=== PATIENT | male | born 1970 | race Caucasian/White ===

== ENCOUNTER 2022-02-22 11:12 | Outpatient (CLI) | payer OTHER, SELFPAY ==
--- NOTE | ~2022-02-22 | XR_ITS ---
EXAMINATION: XR chest 2V 02/22/2022 12:12 INDICATION: Tobacco use PROCEDURE: 2 view chest COMPARISON: No prior studies for comparison. FINDINGS: The lungs are clear. The cardiomediastinal silhouette is within normal limits. There are no pleural effusions. There is no pneumothorax suspected. IMPRESSION: 1: NO ACUTE CARDIOPULMONARY DISEASE. Reviewed, dictated and finalized at location A. RVATION MANAGER
== END 2022-02-22 11:13 | disposition home or self-care (01) ==
LOC: ANHIMG 11:20
PROVIDERS: PCP Emergency Medicine; Visit Provider Emergency Medicine
DX: Z72.0 Tobacco use (principal)
CPT/HCPCS: 71046

== ENCOUNTER 2022-02-24 01:03 | Emergency (ER) | payer OTHER, SELFPAY ==
--- NOTE | ~2022-02-24 | CT_ITS ---
EXAMINATION: CT brain wo con DATE: 02/24/2022 02:02 INDICATION: Headache. Fall. TECHNIQUE: Computed tomography (CT) of the head was performed without intravenous contrast. The mA wa s adjusted according to patient size. Iterative reconstruction technique was employed. The dose-lengt h product was 681.00 mGy-cm. COMPARISON: None FINDINGS: There is no intracranial hemorrhage, acute infarction, or abnormal intracranial mass lesion . The ventricles are normal in size. The orbits are normal. There is mild mucosal thickening in the p aranasal sinuses. The mastoid air cells are normal. IMPRESSION: 1. Normal brain. Reviewed, dictated and finalized at location A. NT CARE CONSULTANT IMPRESSION: 1. Normal brain.
[2022-02-24 01:09] VITALS: BP 161/90; PULSE 104; RESP 18; TEMP 36.6; O2SAT 95
--- NOTE | 2022-02-24 01:18 | ED.FALL ---
HPI - Fall General Chief Complaint: Fall Stated Complaint: Fall, Head Laceration Time Seen by Provider: 02/24/22 01:18 Source: patient and family Mode of arrival: ambulatory Limitations: no limitations History of Present Illness HPI Narrative: Patient is a 51-year-old male with history of hypertension presenting to the emergency department for evaluation following a ground-level fall. Patient states that he awakened to go to the bathroom, when he stood up, began to walk, and tripped over his slipper. This caused him to fall in the bathroom and hit his head on the bathtub. No loss of consciousness. Patient reports mild aching headache pain. He denies any neck pain or upper or lower back pain. He denies upper or lower extremity pain. He denies hip pain. Patient denies vision changes, nausea, vomiting, focal weakness or numbness. Patient is not sure if he is up-to-date on his tetanus. He reports a laceration to his skull but denies any active bleeding. Patient denies prodromal symptoms prior to the fall such as palpitations, chest pain, lightheadedness or shortness of breath. Patient reports he did have a few beers this evening. Related Data Allergies Allergy/AdvReac Type Severity Reaction Status Date / Time No Known Allergies Allergy Verified 02/24/22 01:12 Review of Systems Review of Systems: CONSTITUTIONAL: Denies fever, chills, or sweats. EYES: Denies visual changes, redness, or discharge. ENT: Denies rhinorrhea, congestion, sore throat, or otalgia. CARDIOVASCULAR: Denies chest pain, palpitations, or edema. RESPIRATORY: Denies cough or dyspnea. GASTROINTESTINAL: Denies abdominal pain, nausea, vomiting, or diarrhea. GENITOURINARY: Denies dysuria or hematuria. SKIN: Denies rash or itching. Reports laceration to scalp. MUSCULOSKELETAL: Denies back pain, joint pain, or myalgia. NEUROLOGIC: Mild headache without numbness, or weakness. [facility] Past Medical History Medical History (Updated 02/24/22 @ 02:30 by Arline Carbajal MD) Acid reflux Anxiety Hypertension Surgical History Surgical History (Updated 02/24/22 @ 01:41 by Arline Carbajal MD) H/O shoulder surgery Social History Social History (Updated 02/24/22 @ 01:41 by Arline Carbajal MD) Smoking status: Current every day smoker Tobacco type: cigarettes Alcohol intake: current Substance use: never Living arrangements: with family Gender identity (if verbalized by the patient): Male Exam Narrative: GENERAL: Awake, alert, conversant HEAD: Normocephalic; no hematoma. Patient with 3 scattered superficial scalp lacerations to the anterior aspect of the scalp. One is approximately 3 cm, superficial, linear, not gaping. 1.5 cm, superficial, linear, not gaping. 3 cm, superficial, linear, not gaping. No active bleeding. No hematoma or ecchymosis. EYES: PERRLA and EOMI. ENT: Nares clear, no rhinorrhea or epistaxis. Mucous membranes moist. NECK: Supple. CHEST: No respiratory distress, breathing even and non labored HEART: Regular rate, sinus rhythm ABDOMEN:Non distended, non tender EXTREMITIES: Normal range of motion. No edema. SKIN: Warm, dry. NEURO:No focal deficits. Alert and oriented x3. Finger to nose intact bilaterally. EOMs intact without nystagmus. No facial droop/asymmetry noted bilaterally. Grimace intact. Intact sensation in face. Hearing intact bilaterally. Shoulder shrug intact. Strength 5/5 bilateral upper extremities. Strength 5/5 bilateral lower extremities. Reflexes 2+ patellar. Ambulatory with a narrow base, steady gait. Course Vital Signs Vital signs: Vital Signs Temperature 36.6 C 02/24/22 01:09 Pulse Rate 104 H 02/24/22 01:09 Respiratory Rate 18 02/24/22 01:09 Blood Pressure 161/90 H 02/24/22 01:09 Pulse Oximetry 95 02/24/22 01:09 Oxygen Delivery Room Air 02/24/22 01:09 Temperature 36.6 C 02/24/22 01:09 Pulse Rate 104 H 02/24/22 01:09 Respiratory Rate 18 02/24/22 01:09 Blood Pressure
[2022-02-24] MEDS: TETANUS,DIPHTHERIA,AC PERTUSSIS ADULT (0.5 ML) BOOSTRIX IM (01:33)
[2022-02-24 02:41] VITALS: BP 142/79; PULSE 72; RESP 18; TEMP 36.8; O2SAT 97
== END 2022-02-24 02:44 | disposition home or self-care (01) ==
PROVIDERS: Emergency Provider Emergency Medicine; PCP Emergency Medicine
DX: S00.01XA Abrasion of scalp, initial encounter (principal); F17.210 Nicotine dependence, cigarettes, uncomplicated; I10 Essential (primary) hypertension; F41.9 Anxiety disorder, unspecified; Z23 Encounter for immunization; W01.0XXA Fall on same level from slipping, tripping and stumbling without subsequent striking against object, initial encounter
CPT/HCPCS: 70450; 90471; 90715; 99284